=== PATIENT | male | born 1990 | race Caucasian/White ===

== ENCOUNTER → 2021-03-15 | Outpatient (CLI) | payer OTHER ==
[2021-03-15 14:23] LABS: HEMOGLOBIN 13.6 gm/dl (14.0-17.5); RED BLOOD COUNT 4.89 M/UL (4.20-5.50)
[2021-03-15 14:50] LABS: BUN/CREATININE RATIO 10 (0-10)
[2021-03-16 08:14] LABS: VITAMIN D, 25-HYDROXY 17.8 ng/mL (30.0-100.0)
[2021-03-19 18:09] LABS: TESTOSTERONE, SERUM 577 ng/dL (264-916)
== END ==
LOC: LAB 12:30
PROVIDERS: Family Medicine
DX: E03.9 Hypothyroidism, unspecified (principal); R53.83 Other fatigue; D50.9 Iron deficiency anemia, unspecified; F32.9 Major depressive disorder, single episode, unspecified; E78.5 Hyperlipidemia, unspecified; E55.9 Vitamin D deficiency, unspecified
CPT/HCPCS: 36415; 80053; 80061; 82607; 82728; 83540; 83550; 84402; 84403; 84439; 84443; 85025; 85045

== ENCOUNTER → 2022-04-21 | Outpatient (CLI) | payer OTHER ==
[2022-04-21 15:04] LABS: HEMOGLOBIN 13.5 gm/dl (14.0-17.5); RED BLOOD COUNT 4.81 M/UL (4.20-5.50); WHITE BLOOD COUNT 5.9 K/UL (4.5-11.0)
[2022-04-21 15:25] LABS: BUN/CREATININE RATIO 16 (0-10)
== END ==
LOC: LAB 14:13
PROVIDERS: Family Medicine
DX: I10 Essential (primary) hypertension (principal); E55.9 Vitamin D deficiency, unspecified
CPT/HCPCS: 36415; 80053; 80061; 83735; 84439; 84443; 85027